=== PATIENT | female | born 1930 | race Caucasian/White ===

== ENCOUNTER 2017-09-19 19:49 | Emergency (ER) | payer OTHER ==
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
[2017-09-19] MEDS: fentaNYL CITRATE/PF 100 MCG/ 2ML AMP IVP ONE ×2 (21:16→22:15)
[2017-09-19 21:19] LABS: BASOPHILS % 0.2 (0.0-1.5); EOSINOPHILS % 0.7 % (0.0-6.8); MEAN CORPUSCULAR HEMOGLOBIN 31.8 pg (28.0-34.0); MEAN CORPUSCULAR VOLUME 90.2 fl (80.0-100.0); MONOCYTES % 2.5 % (0.0-11.0); NEUTROPHILS # 6.1 # k/uL (1.4-7.7)
[2017-09-19 21:35] LABS: eGFR (African) > 60; eGFR (Non-African) > 60
[2017-09-19] MEDS: HYDROmorphone HCL/PF 1 MG/ML DISP.SYRIN IVP ONE (22:35)
[2017-09-19 23:12] VITALS: BP 166/71
--- NOTE | 2017-09-20 15:20 | Diagnostic Imaging Report ---
[facility] [id number] [facility].[address] [id number] Report Submission Date: Sep 19, 2017 8:44:04 PM [employer] VEH[employer]LE [employer] Patient Study Name: MISTY MICHAUD Date: Sep 19, 2017 8:07:14 PM [employer] Modality Type: DX Gender: F Description: PELVIS : [birth year] Institution: [facility] Physician: HAMIDA ALMEIDA (LOGISTICS PLANNER) - ER Right hip 2 views Date of Exam: September 19, 2017. History: RT HIP, RT HIP PAIN AFTER FALL TODAY (Hx) Findings: A right femoral intertrochanteric fracture is present with partial separation of the fracture fragments. There is no evidence of hip dislocation. The visualized portion of the right pelvis is intact. 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 Impression: Right femoral intertrochanteric fracture. Electronically signed on Sep 19, 2017 8:44:04 PM MOTOR VEH[employer]LE [employer]ER by: Elizabeth VELAZCO
== END 2017-09-19 22:30 | disposition short-term general hospital (02) ==
LOC: ED 19:49
DX: S72.141A Displaced intertrochanteric fracture of right femur, initial encounter for closed fracture (principal)
CPT/HCPCS: 51702; 73502; 80053; 85025; 96374; 96375; 99284; J1170; J3010